=== PATIENT | female | born 1990 | race African-American/Black ===

== ENCOUNTER 2023-08-04 15:37 | Emergency (ER) | payer MEDICAID ==
[~2023-08-04] VITALS: Ht 154.9 cm; Wt 72.5 kg
[2023-08-04 15:58] VITALS: BP 109/58; PULSE 76; RESP 16; TEMP 99.6; O2SAT 98
== END 2023-08-04 16:45 | disposition home or self-care (01) ==
LOC: ER 15:37
DX: R05.9 Cough, unspecified (principal); R09.81 Nasal congestion; M79.10 Myalgia, unspecified site; Z20.822 Contact with and (suspected) exposure to COVID-19
CPT/HCPCS: 99283; 87426; 87804 ×2; C9803